=== PATIENT | female | born 1995 | race Two or more races ===

== ENCOUNTER 2020-10-11 14:34 | Emergency (ER) | payer OTHER ==
[~2020-10-11] VITALS: Ht 165.1 cm; Wt 70.5 kg
[2020-10-11] MEDS ORDERED: KETOROLAC 30 MG/ML 1ML VIAL IM ONE (15:45)
[2020-10-11] MEDS ORDERED: IBUP80TA PO (16:04)
[2020-10-11 16:47] VITALS: BP 120/68
== END 2020-10-11 16:47 | disposition home or self-care (01) ==
LOC: M ED 14:34
DX: R10.2 Pelvic and perineal pain (principal); R25.2 Cramp and spasm
CPT/HCPCS: 84702; 96372; 99283; J1885

== ENCOUNTER → 2021-03-17 | Outpatient (CLI) | payer OTHER ==
[~2021-03-17] MED LIST: IBUP80TA PO
--- NOTE | 2021-03-18 02:59 | REP ---
INDICATION: PAIN COMPARISON: None. TECHNIQUE: AP, lateral, coned-down views of the lumbar spine. FINDINGS: Three views of the lumbosacral spine demonstrate satisfactory alignment and lordosis without acute fracture / compression injury or subluxation. IMPRESSION: 1. No acute fracture / compression injury or subluxation. 2. No obvious congenital or degenerative changes noted. <Electronically signed by Bran Christine > 03/18/21 0258
--- NOTE | 2021-03-18 03:02 | REP ---
INDICATION: PAIN COMPARISON: None. TECHNIQUE: AP and frog-lateral views of the left hip FINDINGS: Osseous structures, joint spaces, and surrounding soft tissues are relatively age-appropriate and within normal limits. Questionable minimal joint space narrowing should be correlated with physical examination. Surrounding soft tissues are unremarkable. IMPRESSION: Essentially age-appropriate examination.. <Electronically signed by Bran Christine > 03/18/21 0259
== END ==
LOC: M WUC 12:09
PROVIDERS: ATTEND Physician Assistant
DX: M25.552 Pain in left hip (principal); M54.5 Low back pain

== ENCOUNTER → 2021-07-29 | Outpatient (CLI) | payer OTHER ==
[2021-07-29 16:04] LABS: BASO % 0.4 % (0.0-1.0); EOS # 0.1 10^3/uL (0.0-0.5); HEMATOCRIT 38.2 % (36.0-47.0); HEMOGLOBIN 12.3 g/dl (12.0-15.5); LYMPH # 2.9 10^3/uL (1.5-5.0); LYMPH % 42.6 % (24.0-44.0); MEAN CORPUSCULAR HEMOGLOBIN 27.8 pg (27.0-33.0); MEAN CORPUSCULAR HGB CONC 32.2 g/dl (32.0-36.5); MEAN CORPUSCULAR VOLUME 86.4 fl (80.0-96.0); MONO # 0.5 10^3/uL (0.0-0.8); MONO % 6.8 % (2.0-8.0); NEUTROPHILS # 3.3 10^3/uL (1.5-8.5); NEUTROPHILS % 48.9 % (36.0-66.0); PLATELET COUNT, AUTOMATED 287 10^3/uL (150-450); RED BLOOD COUNT 4.42 10^6/uL (4.00-5.40); WHITE BLOOD COUNT 6.8 10^3/uL (4.0-10.0)
[2021-07-29 16:43] LABS: FOLLICLE STIMULATING HORMONE 2.2 mIU/mL; FREE T4 0.94 NG/DL (0.76-1.46); HCG, SERUM QUANTITATIVE < 1.0 MIU/ML; LUTEINIZING HORMONE 3.4 mIU/mL; THYROID STIMULATING HORMONE 0.668 uIU/ML (0.358-3.740)
== END ==
LOC: M WUC 11:57
PROVIDERS: ATTEND Advanced Practice Midwife
DX: N92.1 Excessive and frequent menstruation with irregular cycle (principal)

== ENCOUNTER → 2021-08-06 | Outpatient (REF) | payer OTHER | LOC: M LAB REF 12:14 | PROVIDERS: ATTEND Podiatrist Foot & Ankle Surgery | DX: M85.571 Aneurysmal bone cyst, right ankle and foot (principal) ==

== ENCOUNTER → 2021-10-15 | Outpatient (CLI) | payer OTHER ==
[~2021-10-15] MED LIST changes: +ISOVUE-370 76% 100ML VIAL As Ordered ONE; +ISOVUE-M 300 61% 15ML VIAL As Ordered ONE
== END ==
LOC: M RADPRO 12:01
PROVIDERS: ATTEND Obstetrics & Gynecology
DX: N97.0 Female infertility associated with anovulation (principal)
CPT/HCPCS: 58340; 74740; Q9967

== ENCOUNTER → 2021-11-23 | Outpatient (REF) ==
[~2021-11-23] MED LIST changes: -ISOVUE-370 76% 100ML VIAL As Ordered ONE; -ISOVUE-M 300 61% 15ML VIAL As Ordered ONE
[2021-11-24 05:07] LABS: RUBEOLA IgG ANTIBODY 30.8 AU/mL (Immune >16.4)
== END ==
LOC: M LAB 10:14
PROVIDERS: ATTEND Nurse Practitioner Adult Health
DX: Z00.00 Encounter for general adult medical examination without abnormal findings (principal)